=== PATIENT | male | born 1960 | race African-American/Black ===

== ENCOUNTER → 2018-11-12 08:55 | Outpatient (CLI) | payer MEDICARE ==
[~2018-11-12 08:55] MED LIST: GLUCOTROL XL 1010 MG PO; HYDROCODON-ACE1 EA10 PO; LIPITOR10 MG PO; LISINOPRIL-HCT1 EAC8 PO; METFORMIN HCL500 M1 PO; NEURONTIN800 MG PO; ZYRTEC10 MG PO
[2018-11-25 11:04] VITALS: BMI 43.1
== END | disposition home or self-care (01) ==
LOC: D.HCCARDIO 08:55
DX: I20.9 Angina pectoris, unspecified (principal)

== ENCOUNTER 2018-11-25 10:33 | Outpatient (CLI) | payer MEDICARE ==
[~2018-11-25] VITALS: Ht 177.8 cm; Wt 136.4 kg
--- NOTE | ~2018-11-25 | HEMODYNAMI ---
PATIENT:EDWARD BUENO MEDICAL RECORD: [id number] : 58 LOCATION:[facility] ADMISSION DATE: 11/25/18 Generatedon:11/25/201813:24 Patient name: EDWARD BUENO Patient #: [id number] SSN: : 1960 Date of study: 11/25/2018 Page: Of Hemodynamic Procedure Report Patient Data Patient Demographics Procedure consent was obtained First Name: EDWARD Gender: Male Last Name: XIMENA : 1960 Patient #: [id number] Age: 57 year(s) Race: Black Additional ID: [id number] Contact details Address: [address] [place] [address] State: [place] City: [place] Zip code: [address] Past Medical History Allergies Allergen Reaction Date Comments Reported Other allergy 11/25/2018 sulfa Admission Admission Data Admission Date: 11/25/2018 Admission Time: 10:33 Admit Source: Other Lab Results Lab Result Date: 11/25/2018 Lab Result Time: 0:00 Biochemistry Name Units Result Min Max BUN mg/dl 19 --(----)*- 7 18 Creatinine mg/dl 1.2 --(---*)-- 0.6 1.3 CBC Name Units Result Min Max Hematocrit % 41 -*(----)-- 42 54 Hemoglobin g/dl 13.7 --(*---)-- 13.5 17.5 Procedure Procedure Types Cath Procedure Diagnostic Procedure LHC LHC w/Coronaries Procedure Description Procedure Date Procedure Date: 11/25/2018 Procedure Start Time: 13:12 Procedure End Time: 13:22 Procedure Staff Name Function Albert Barrios MD Performing Physician Kevin Lee RN Nurse Miguelito Craig RT Monitor Davi Llanos RT Scrub Procedure Data Cath Procedure Fluoroscopy Diagnostic fluoroscopy Total fluoroscopy Time: 1.8 time: 1.8 min min Diagnostic fluoroscopy Total fluoroscopy dose: dose: 1005 mGy 1005 mGy Contrast Material Contrast Material Type Amount (ml) Isovue 300 75 Entry Location Entry Primary Successful Side Size Upsize Upsize Entry Closure Butler ccessful Closure Location (Fr) 1 (Fr) 2 (Fr) Remarks Device Remarks Radial Right 6 Fr Mechanical artery Short Compression Estimated blood loss: 5 ml Diagnostic catheters Device Type Used For End Catheter Placement DIAGNOSTIC Zuhair 110cm Procedure 5Fr catheter ([id number]) Procedure Complications No complications Procedure Medications Medication Administration Route Dosage 0.9% NaCl I.V. 100 ml/hr Oxygen etCO2 Nasal cannula 2 l/min Heparin Flush Bag added to field 2 bags (1000units/500ml NS) Lidocaine 2% added to field Radial Cocktail added to field 1 syringe (Verapomil 2mg/Nitro 400mcg/Heparin 1500units) Versed I.V. 2 mg Fentanyl I.V. 100 mcg Radial Cocktail I.A. 1 syringe (Verapomil 2mg/Nitro 400mcg/Heparin 1500units) Hemodynamics Rest HGB: 13.7 (g/dl) Heart Rate: 61 (bpm) Pressure Samples Time Site Value (mmHg) Purpose Heart Use Rate(bpm) 13:16 LV 114/-3,13 Snapshot 73 13:16 AO 101/61(78) Pullback 66 13:16 LV 109/-5,12 Pullback 66 Gradients Valve Time Site 1 Site 2 Mean SEP/DFP Peak To Heart Use (mmHg) (sec/min) Peak Rate (mmHg) (bpm) Aortic 13:16 LV AO 6 11 8 66 109/-5,12 101/61(78) Calculations Valve P-P Mean Valve Index Valve Source Name Gradient Area Flow (cm2) Aortic 8 6 8 6 Snapshots Pre Cath Intra NCS Post Cath Vital Signs Time Heart Resp SPO2 etCO2 NIBP (mmHg) Rhythm Pain Sedation Rate (ipm) (%) (mmHg) Status Level (bpm) 13:02:43 61 13 98 39.1 127/75(96) NSR 0 (11) 10(A) , No pain 13:06:57 60 13 99 39.8 124/73(101) NSR 0 (11) 10(A) , No pain 13:11:13 65 16 98 30.8 127/69(94) NSR 0 (11) 9(A) , No pain 13:15:33 69 14 98 24.8 124/69(112) NSR 0 (11) 9(A) , No pain 13:19:49 67 14 94 12.8 118/65(106) NSR 0 (11) 9(A) , No pain Medications Time Medication Route Dose Verified Delivered Reason Notes Effectiveness by by 13:00:10 0.9% NaCl I.V. 100 Kevin Kevin Per ml/hr Rosa Lee physician RN RN 13:00:23 Oxygen etCO2 2 l/min Kevin Kevin for low 02 Nasal Lorigan Sheritaigan sats cannula RN RN 13:01:06 Heparin Flush added 2 bags Kevin Kevin used for Bag to Lorigan Lorigan procedure (1000units/500ml field RN RN NS) 13:01:17 Lidocaine 2% added Kevin Kevin for local to Lorigan Lorigan anesthetic field RN RN 13:01:29 Radial Cocktail added 1 Kevin Kevin used for (Verapomil to syringe Lorigan Rosa procedure 2mg/Nitro field LEE RN 400mcg/Heparin 1500units) 13:08:28 Versed I.V. 2 mg Kevin Kevin for sedation Rosa Lee RN RN 13:08:36 Fentanyl I.V. 100 mcg Kevin Kevin for sedation Rosa Lee RN RN 13:15:28 Radial Cocktail I.A. 1 Kevin Albert for (Verapomil syringe Rosa Barrios MD vasodilation 2mg/Nitro RN 400mcg/Heparin 1500units) Procedure Log Time Note 12:47:44 Informed consent obtained and on chart 12:47:48 Admit Source: Other 12:48:01 Diagnostic Cath status Elective 12:48:02 Kevin Lee RN sent for patient. Start room use. 12:48:03 Time tracking: Regular hours (M-F 7:00 - 5:00) 12:48:06 Plan of Care:Hemodynamics will remain stable., Cardiac rhythm will remain stable., Comfort level will be maintained., Respiratory function will remain adequate., Patient/ family verbilizes understanding of procedure., Procedure tolerated without complication., Recovers from procedure without complications.. 12:48:50 H&P Date Dictated: 11/25/2018 New H&P dictated by physician.. 12:50:26 Lab Result : BUN 19 mg/dl 12:50:26 Lab Result : Creatinine 1.2 mg/dl 12:50:26 Lab Result : Hemoglobin 13.7 g/dl 12:50:26 Lab Result : Hematocrit 41 % 12:50:29 Lab results completed and on chart. 12:51:42 Patient received from Pre/Post Procedure Room to CCL 2 Alert and oriented. Tansferred to table in Supine position. 12:51:43 Warm blankets applied, and jonathan hugger turned on for patient comfort. 12:51:43 Correct patient and procedure confirmed by team. 12:51:45 ECG and BP/O2 sat monitors applied to patient. 12:51:45 Pre-procedure instructions explained to patient. 12:51:46 Pre-op teaching completed and patient verbalized understanding. 12:51:46 Family in waiting room. 12:51:48 Patient NPO since Breakfast. 13:00:10 0.9% NaCl 100 ml/hr I.V. was administered by Kevin Lee RN; Per physician; 13:00:23 Oxygen 2 l/min etCO2 Nasal cannula was administered by Kevin Lee RN; for low 02 sats; 13:01:06 Heparin Flush Bag (1000units/500ml NS) 2 bags added to field was administered by Kevin Lee RN; used for procedure; 13:01:17 Lidocaine 2% added to field was administered by Kevin Lee RN; for local anesthetic; 13:01:29 Radial Cocktail (Verapomil 2mg/Nitro 400mcg/Heparin 1500units) 1 syringe added to field was administered by Kevin Lee RN; used for procedure; 13:01:36 Vital chart was started 13:05:41 Patient allergic to Other allergysulfa 13:05:44 Baseline sample Acquired. 13:05:46 Rhythm: sinus rhythm 13:05:47 Full Disclosure recording started 13:05:49 Is the patient allergic to Iodine/contrast media? No. 13:05:50 Is patient on blood thinner?No 13:05:51 Patient diabetic? Yes. 13:05:52 If diabetic: On Metformin? Yes 13:05:55 If on Metformin: Last Dose? 11/22/2018 13:05:58 Previous problem with sedation/anesthesia? No ? 13:05:59 Snore? Yes 13:06:00 Sleep apnea? No 13:06:00 Deviated septum? No 13:06:01 Opens mouth fully? Yes 13:06:02 Sticks out tongue? Yes 13:06:04 Airway obstruction? No ? 13:06:05 Dentures? No ? 13:06:07 Pre procedure: right dorsailis pedis pulse 2+ Normal; easily identifiable; not easily obliterated 13:06:09 Patient pain scale 0/10 ?. 13:06:12 IV patent on arrival in left forearm with 0.9% NaCl at [facility]. 13:06:16 Right Radial & Right Groin area was prepped with chlora-prep and draped in sterile fashion 13:06:17 Alarms reviewed by R. N. 13:06:17 Sharps counted by scrub and verified by R.N. 13:06:19 Use device set Radial Dx or PCI 13:06:20 ACIST Syringe (19648) opened to sterile field. 13:06:20 Medline Cath Pack ([id number]) opened to sterile field. 13:06:21 Bag Decanter (2002S) opened to sterile field. 13:06:22 ACIST Hand Control (99515) opened to sterile field. 13:06:22 ACIST Manifold (91571) opened to sterile field. 13:06:22 Tegaderm 4 x 4 (1626W) opened to sterile field. 13:06:23 MBrace Wrist Support ([id number]) opened to sterile field. 13:06:24 SHEATH 6FR Slender (47-1060) opened to sterile field. 13:06:25 DIAGNOSTIC WIRE .035 260cm J wire (524743) opened to sterile field. 13:06:25 NEEDLE Cook 21G 4cm Radial (H39822) opened to sterile field. 13:06:31 Physician arrived 13:06:32 --------ALL STOP TIME OUT------ 13:06:33 Final Timeout: patient, procedure, and site verified with staff and physician. All members of the team are in agreement. 13:06:34 Right Radial & Right Groin site verified by team. 13:06:38 Fire Safety Assessment: A--An alcohol-based skin anteseptic being used preoperatively., C--Open oxygen or nitrous oxide is being used., D--An ESU, laser, or fiber-optic light is being used. 13:06:40 Physical assessment completed. ASA score P 2 - A patient with mild systemic disease as per Albert Barrios MD. 13:06:42 Sedation plan: IV Moderate Sedation Medication:Versed, Fentanyl 13:08:28 Versed 2 mg I.V. was administered by Kevin Lee RN; for sedation; 13:08:36 Fentanyl 100 mcg I.V. was administered by Kevin Lee RN; for sedation; 13:09:15 Zero performed for pressure channel P1 13:12:54 Procedure started. 13:12:58 Local anesthetic to right radial artery with Lidocaine 2% by Albert Barrios MD.INITIAL ACCESS ONLY 13:14:18 A 6 Fr Short sheath was inserted into the Right Radial artery 13:14:29 A DIAGNOSTIC Zuhair 110cm 5Fr catheter ([id number]) was advanced over the wire and used for Procedure. 13:15:28 Radial Cocktail (Verapomil 2mg/Nitro 400mcg/Heparin 1500units) 1 syringe I.A. was administered by Albert Barrios MD; for vasodilation; 13:16:11 LV gram done using PABLO 13:16:13 Injector settings: Ml/sec: 5, Volume: 15, 13:16:31 EF : 50 % 13:16:32 LV hemodynamics recorded. 13:17:23 RCA angiography performed. 13:18:01 LCA angiography performed. 13:19:21 Catheter removed. 13:19:28 ZEPHYR LARGE TR BAND NO COST(125776) opened to sterile field. 13:19:37 Sheath removed intact; hemostasis achieved with Mechanical Compression to the Right Radial artery. 13:20:18 Procedure ended.(Physican Out) 13:20:31 Fluoroscopy time 01.80 minutes. 13:20:36 Fluoroscopy dose: 1005 mGy 13:20:36 Flurop Dose total: 1005 13:20:40 Contrast amount:Isovue 300 75ml. 13:21:48 Sharps counted by scrub and verified by R.N. 13:21:51 TR band inflated with 8cc of air. 13:21:52 Insertion/operative site no bleeding no hematoma. 13:21:54 Post Procedure Pulses reassessed and unchanged 13:21:59 Post procedure rhythm: unchanged. 13:22:01 Post-procedure physical assessment completed. ASA score P 2 - A patient with mild systemic disease as per Albert Barrios MD. 13:22:03 Estimated blood loss: 5 ml 13:22:05 Post procedure instruction explained to patient.Patient verbalizes understanding. 13:22:06 Patient needs reinforcement of post procedure teaching. 13:22:45 Procedure and supply charges have been captured, reviewed, submitted and are correct. 13:22:48 Procedure Complication : No complications 13:22:49 Vital chart was stopped 13:22:50 See physician's report for complete and final results. 13:22:51 Report given to Pre/Post Procedure Room. 13:22:53 Patient transfered to Pre/Post Procedure Room with Stretcher. 13:22:55 Procedure ended. 13:22:55 Full Disclosure recording stopped 13:22:59 End room use (Document Last) Device Usage Item Name Manufacture Quantity Catalog Hospital Part Current Minima l Lot# / Number Charge Number Stock Stock Serial# Code ACIST Acist 1 [id number] [id number] 693603 700240 20 Syringe Medical (24500) Systems Inc Medline Cath Medline 1 [id number] 98106 200401 5 Pack ([id number]) Bag Decanter Microtek 1 2001S 101870 37016 008649 5 (2001S) Medical Inc. ACIST Hand Acist 1 27806 378213 022097 462085 5 Control Medical (75656) Systems Inc ACIST Acist 1 07091 389740 447981 293498 5 Manifold Medical (47350) Systems Inc Tegaderm 4 x 3M 1 1626W 870305 899991 017934 5 4 (1626W) MBrace Wrist Advanced 1 140-0250-00 417894 34847 049656 5 Support Vascular ([id number]) Dynamics SHEATH 6FR Terumo 1 [id number] 827996 124437 270686 5 Slender (80-1060) DIAGNOSTIC St Ian 1 530084 462685 727165 590670 30 WIRE .035 260cm J wire (258841) NEEDLE Cook Cook Medical 1 [id number] 872525 439855 905216 5 21G 4cm Radial (V46046) DIAGNOSTIC Terumo 1 40-6831 331947 623216 475576 5 Zuhair 110cm 5Fr catheter (236573) ZEPHYR LARGE Cardinal 1 987897 135073 310477 5 TR BAND NO Health COST(670881) Signature Audit [place] Stage Time Signature Unsigned Intra-Procedure 11/25/2018 Miguelito Craig 1:24:37 PM RT(R) Signatures Monitor : Miguelito Craig RT Signature : Date : Time : [place] [id number] [place] [address]
[2018-11-25] MEDS ORDERED: LISINOPRIL-HCT1 EAC8 PO (10:53)
[2018-11-25] MEDS ORDERED: HYDROCODON-ACE1 EA10 PO (10:54)
[2018-11-25] MEDS ORDERED: ZYRTEC10 MG PO (10:54)
[2018-11-25] MEDS ORDERED: NEURONTIN800 MG PO (10:54)
[2018-11-25] MEDS ORDERED: METFORMIN HCL500 M1 PO (10:55)
[2018-11-25] MEDS ORDERED: GLUCOTROL XL 1010 MG PO (10:55)
[2018-11-25] MEDS ORDERED: LIPITOR10 MG PO (10:55)
[2018-11-25 11:04] VITALS: BP 143/85; Ht 177.8 cm; Wt 136.4 kg
[2018-11-25 11:17] LABS: ANION GAP 10.8 mmol/L (8-16); CARBON DIOXIDE 30.9 mmol/L (21.0-32.0); CREATININE - SERUM 1.2 mg/dL (0.6-1.3); POTASSIUM - SERUM 3.7 mmol/L (3.5-5.1)
[2018-11-25 11:26] LABS: BASOPHILS 0.2 % (0-2); EOSINOPHILS 1.2 % (0-7); HEMOGLOBIN 13.7 g/dL (13.5-17.5); LYMPHOCYTES 38.3 % (15-50); MCH 28.2 pg (26.0-34.0); MCHC 33.4 g/dL (31.0-37.0); MCV 84.5 fL (80.0-100.0); MEAN PLATELET VOLUME 12.4 fL (7.4-10.4); MONOCYTES 8.7 % (2-11); NEUTROPHILS 51.6 % (40-80); PLATELET COUNT 186 10x3/uL (130-400); RBC 4.85 10x6/uL (4.20-6.10); RDW 13.9 % (11.5-14.5)
--- NOTE | 2018-11-25 13:50 | NUR ---
ROOM AIR, NO RESP DISTRESS. RIGHT WRIST TR BAND CDI, NO BLEEDING OR HEMATOMA NOTED. NO C/O PAIN OR NAUSEA. VSS. FAMILY AT BEDSIDE, CALL LIGHT WITHIN REACH.
--- NOTE | 2018-11-25 14:20 | NUR ---
RIGHT WRIST Z-BAND CDI, NO BLEEDING OR HEMATOMA NOTED. ROOM AIR WITH NO RESP DISTRESS. NO NEEDS VOICED AT THIS TIME. VSS. WILL CONTINUE TO MONITOR.
--- NOTE | 2018-11-25 14:45 | NUR ---
3CC OF AIR REMOVED FROM TR BAND WITH NO BLEEDING NOTED. SIPPING ON DRINK AND EATING SANDWICH WITH NO C/O NAUSEA. VSS. WILL CONTINUE TO MONITOR CLOSELY.
--- NOTE | 2018-11-25 15:00 | NUR ---
3CC OF AIR REMOVED FROM BAND WITH NO BLEEDING NOTED. WILL CONTINUE TO MONITOR.
--- NOTE | 2018-11-25 15:15 | NUR ---
3CC OF AIR REMOVED FROM TR BAND WITH NO BLEEDING NOTED.
--- NOTE | 2018-11-25 15:22 | NUR ---
REMAINGING AIR REMOVED FROM TR BAND WITH NO BLEEDING NOTED. DRESSING TO SITE. DISCHARGE INSTRUCTIONS GIVEN, VERBALIZED UNDERSTANDING.
--- NOTE | 2018-11-25 15:25 | NUR ---
LEFT PIV D/C'D WITH CATHETER INTACT, BAND AID TO SITE. UP TO BEDSIDE TO GET DRESSED.
--- NOTE | 2018-11-25 15:40 | NUR ---
TAKEN OUT VIA WHEELCHAIR BY CATH BUILDING ARCHITECTURAL DESIGNER. LEFT FACILITY WITH FAMILY AND ALL PERSONAL BELONGINGS.
== END 2018-11-25 15:40 | disposition home or self-care (01) ==
LOC: D.CATH 10:33
PROVIDERS: Internal Medicine Cardiovascular Disease
DX: I20.9 Angina pectoris, unspecified (principal); E11.9 Type 2 diabetes mellitus without complications; I10 Essential (primary) hypertension; R94.39 Abnormal result of other cardiovascular function study